=== PATIENT | female | born 1975 | race Caucasian/White ===

== ENCOUNTER → 2016-10-11 | Outpatient (CLI) | payer OTHER ==
--- NOTE | 2016-10-11 10:14 | DX ---
Right Hip, Two Views History: Right hip pain. M25.551. Comparison: None. Findings: Right hip demonstrates no evidence of fracture or dislocation. No evidence of significant degenerative changes, joint space narrowing, or osteophytes. No destructive osseous lesions. IUD identified. Sacroiliac joints are unremarkable. Impression: 1. No evidence of right hip fracture or dislocation. 2. No significant degenerative changes.
== END ==
LOC: BRMIMAGING 09:22
PROVIDERS: ATTEND Physician Assistant
DX: M25.551 Pain in right hip (principal)
CPT/HCPCS: 73502-PO